=== PATIENT | female | born 1985 | race Caucasian/White ===

== ENCOUNTER 2018-06-17 09:17 | Observation (INO) ==
[2018-06-17] MEDS ORDERED: Metoprolol Tartrate 25 MG Tablet PO ONE (10:27)
[2018-06-17] MEDS ORDERED: Chlorhexidine Gluconate 2% 1 Pack (2 Cloths) TOPICAL ONE (10:27)
[2018-06-17] MEDS ORDERED: ceFAZolin 2 GM IV; once IV.SIG SCH (10:30)
[2018-06-17 10:42] LABS: Baso % (Auto) 0.6 % (0.0-2.0); Eos # (Auto) 0.2 th/mm3 (0.0-0.4); Eos % (Auto) 3.1 % (0.0-4.0); Hemoglobin 14.1 gm/dL (11.6-15.3); Lymph # (Auto) 2.6 th/mm3 (1.0-4.8); Lymph % (Auto) 43.9 % (9.0-44.0); Mean Corpuscular HGB Conc 34.3 % (32.0-36.0); Mean Corpuscular Hemoglobin 30.3 pg (27.0-34.0); Mean Corpuscular Volume 88.3 fL (80.0-100.0); Mean Platelet Volume 8.6 fL (7.0-11.0); Mono # (Auto) 0.3 th/mm3 (0.0-0.9); Mono % (Auto) 5.1 % (0.0-8.0); Neut # (Auto) 2.8 th/mm3 (1.8-7.7); Neut % (Auto) 47.3 % (16.0-70.0); Platelet Count 173 th/mm3 (150-450); Red Blood Count 4.65 mil/mm3 (4.00-5.30); Red Cell Distribution Width 12.6 % (11.6-17.2); White Blood Count 5.8 th/mm3 (4.0-11.0)
[2018-06-17] MEDS ORDERED: Sodium Chlor 0.9% Inj 500 ML IV.SIG SCH (11:00)
[2018-06-17] MEDS ORDERED: Ketamine Inj 50 MG/5 ML Syringe IV.PUSH ONE (11:07)
[2018-06-17] MEDS ORDERED: Famotidine PF Inj 20 MG/2 ML Vial ONE (11:08)
[2018-06-17] MEDS ORDERED: fentaNYL Citrate Inj 250 MCG/5 ML Ampul ONE (11:08)
[2018-06-17] MEDS ORDERED: Lidocaine 1%/Epinephrine 1:100,000 Inj 20 ML Vial ONE (11:11)
[2018-06-17] MEDS ORDERED: Glycopyrrolate Inj 1 MG/5 ML Syringe IV.PUSH ONE (11:31)
[2018-06-17] MEDS ORDERED: Lidocaine PF 1% Inj 5 ML Syringe OTHER ONE (11:31)
[2018-06-17] MEDS ORDERED: Neostigmine Inj 5 MG/5 ML Syringe IV.PUSH ONE (11:31)
--- NOTE | 2018-06-17 14:17 | P.OP ---
- Preoperative Diagnosis (1) Intramural and submucous leiomyoma of uterus - Postoperative Diagnosis (1) Intramural and submucous leiomyoma of uterus Date of procedure: 06/17/18 Procedure: LAVH bilateral salpingectomy Anesthesia: GETA Surgeon: Chilo Salazar MD Machine Feeder Floorperson: Michelle Aguero Estimated blood loss (mL): 1,000 Pathology: other (uterus cervix and fallopian tubes)
[2018-06-17] MEDS ORDERED: *morphine SULFATE 10 MG/ML PERIprocedure ONLY ONE (14:37)
[2018-06-17] MEDS ORDERED: *Meperidine Inj 25 MG/ML Vial PERIprocedural Use ONLY ONE (14:41)
--- NOTE | 2018-06-17 15:07 | MP ---
cc: Chilo aSlazar MD DATE OF OPERATION: 06/17/2018 PROCEDURE PERFORMED: Laparoscopic-assisted vaginal hysterectomy, bilateral salpingectomy. PREOPERATIVE DIAGNOSIS: Large fibroid uterus. POSTOPERATIVE DIAGNOSES: Large fibroid uterus. SURGEON: Chilo Salazar MD ESTIMATED BLOOD LOSS: 1000 mL. CHILD PSYCHOLOGIST: Gisela Aguero APRN COMPLICATIONS: None. FINDINGS: Large anterior and posterior fibroid, cervical fibroid on the left side at the cervix. ANESTHESIA: General. PROCEDURE IN DETAIL: After informed consent, the patient was taken to the operating room where she was placed under general anesthesia. She was placed in a supine position, legs in the Yellofins stirrups and perineum and vagina were prepped and draped in normal sterile fashion. After adequate anesthesia was assured and a timeout was taken, a speculum was placed in the vagina. The cervix was grasped with a single-tooth tenaculum and an acorn uterine manipulator was then placed. Caro catheter was then placed to gravity. Timeout had been taken prior to this. At this point, gloves were changed. A 5 mm umbilical incision was then made after injecting with 1% lidocaine with epinephrine. We entered the abdomen under direct visualization. The right lower quadrant and left lower quadrant 5 mm trocars were injected. This was done without difficulty. We insufflated the abdomen. Once the abdomen was insufflated, the upper abdomen was normal. The lower abdomen revealed normal ovaries bilaterally, but a very large fibroid uterus with a posterior fibroid at the cervix on the left side. At this point, we dissected out the fallopian tubes, pulled them off the ovaries and removed them with the Harmonic scalpel coming across the mesosalpinx. Once both fallopian tubes were removed, the ovaries were well vascularized. Taking the Harmonic scalpel, we came across the uteroovarian ligament and across the round ligament, creating a bladder flap off the anterior fibroid and the uterus more so on the right. The fibroid was more so on the left. At this point, once the bladder flap was created, we came down the broad ligament, cutting and cauterizing the vessels. As we reached the larger vessels, we carefully came across those vessels with the Harmonic scalpel. Good hemostasis was achieved, but there was backbleeding occurring. We lost about 300 mL of blood while this was occurring, using alternating suction healthcare manager to keep the field free. Once adequate hemostasis was achieved, our attention was turned to the vaginal portion of the case. We opened up the anterior cul-de-sac and met the incision from above with the bladder flap that had been created. This was done without difficulty. Posterior cul-de-sac was entered. The blood was evacuated from the posterior cul-de-sac and a large fibroid was encountered. Using Ad clamps, we clamped, cut, and tied the cervical branch of the uterine artery and the uterosacral and cardinal ligaments. Good hemostasis was achieved. We quickly met the incision on the patient's right side. On the left side, the patient had a large fibroid. The peritoneum seemed to progress all the way around. At this point, we could no longer visualize any more pedicles so a decision was made to take the fibroid out in the uterus. We removed the uterus and cervix along with a partial myomectomy, taking a wedge-shaped section out of the fibroid until the fibroid could finally be delivered. Once the fibroid was delivered, there was just a filmy peritoneal attachment. This was all taken down. It was approximately 4 cm in length. It was taken down with a Bovie cautery. After good hemostasis was achieved, we oversewed the vessels on the right side cervical branch of the uterine of the arteries that were oozing slightly. The rest of the vessels were normal. The posterior cuff was oozing and had to be oversewn with a running locking stitch of 0 Vicryl suture. Good hemostasis was achieved there. The anterior cuff was closed along with the vaginal cuff [id number] sutures. Good hemostasis was achieved. At this point, we changed our gloves again. The abdomen was then re-insufflated and then peering into the posterior cul-de-sac, there was no bleeding from the vaginal cuff. The ovaries were also dry and well vascularized. The upper abdomen had some slight blood and clot. This was all irrigated well. The patient was placed in reverse Trendelenburg and we removed all fluid. The patient tolerated the procedure well. She was taken to recovery room in stable condition. Lap and instrument counts were reported as correct. MD TAMERA Morales/ninfa , 02:22 PM , 02:33 PM
[2018-06-17] MEDS ORDERED: HYDROmorphone PF Inj 0.5 MG/0.5 ML Syringe ONE (15:20)
[2018-06-17] MEDS: Ketorolac Inj 30 MG/ML (IVP) Vial IV.PUSH PRN ×2 (15:30→21:13)
[2018-06-17 22:24] LABS: Baso % (Auto) 0.1 % (0.0-2.0); Hemoglobin 11.9 gm/dL (11.6-15.3); Lymph # (Auto) 0.7 th/mm3 (1.0-4.8); Lymph % (Auto) 7.8 % (9.0-44.0); Mean Corpuscular HGB Conc 34.1 % (32.0-36.0); Mean Corpuscular Hemoglobin 30.3 pg (27.0-34.0); Mean Corpuscular Volume 88.9 fL (80.0-100.0); Mean Platelet Volume 8.1 fL (7.0-11.0); Mono # (Auto) 0.1 th/mm3 (0.0-0.9); Mono % (Auto) 1.2 % (0.0-8.0); Neut # (Auto) 7.9 th/mm3 (1.8-7.7); Neut % (Auto) 90.9 % (16.0-70.0); Platelet Count 179 th/mm3 (150-450); Red Blood Count 3.94 mil/mm3 (4.00-5.30); Red Cell Distribution Width 12.3 % (11.6-17.2); White Blood Count 8.7 th/mm3 (4.0-11.0)
[2018-06-17] MEDS ORDERED: Simethicone 80 MG Chew Tablet PO PRN (22:55)
[2018-06-18] MEDS: Ketorolac Inj 30 MG/ML (IVP) Vial IV.PUSH PRN ×2 (03:59→10:35)
[2018-06-18 08:17] VITALS: O2SAT 100
[2018-06-18 12:07] VITALS: BP 98/47; PULSE 68; RESP 18; TEMP 97.8
== END 2018-06-18 15:22 | disposition home or self-care (01) ==
LOC: HSDC 09:17 → HSDI 09:17 → H1EA 16:24
PROVIDERS: ADMIT Obstetrics & Gynecology; ATTEND Obstetrics & Gynecology
DX: D25.0 Submucous leiomyoma of uterus; N88.8 Other specified noninflammatory disorders of cervix uteri; D25.1 Intramural leiomyoma of uterus; N83.8 Other noninflammatory disorders of ovary, fallopian tube and broad ligament
CPT/HCPCS: 84702; 85025; 86850; 86900; 86901; 88307; 94150; 96361; 96374; 96376; G0378; J0131; J0690; J1100; J1170; J1885; J2175; J2250; J2270; J2405; J2704; J2710; J3010; J7120; J8501